=== PATIENT | male | born 1955 | race Asian ===

== ENCOUNTER 2017-04-06 21:51 | Emergency (ER) | payer MEDICAID ==
[~2017-04-06] VITALS: Ht 175.3 cm; Wt 68.0 kg
[~2017-04-06 21:51] MED LIST: GLIP10TA11 PO; METF-510 PO; NITR-85 PO
[2017-04-06 22:00] VITALS: BP_SYST 125
[2017-04-06 23:29] LABS: BASOPHILS % (AUTO) 1.1 % (0.0-2.0); EOSINOPHILS % (AUTO) 4.8 % (0.0-4.0); HEMATOCRIT 31.7 % (36-54); HEMOGLOBIN 10.5 g/dL (14.0-18.0); LYMPHOCYTES # (AUTO) 1.2 K/uL (1.0-5.5); LYMPHOCYTES % (AUTO) 10.9 % (20.5-51.5); MEAN CORPUSCULAR HEMOGLOBIN 30 pg (27-31); MEAN CORPUSCULAR HGB CONC 33 % (32-36); MEAN CORPUSCULAR VOLUME 90 fL (79.0-98.0); MONOCYTES # (AUTO) 0.8 K/uL (0.0-1.0); MONOCYTES % (AUTO) 7.3 % (1.7-9.3); NEUTROPHILS # (AUTO) 8.2 K/uL (1.8-7.7); NEUTROPHILS % (AUTO) 75.9 % (40.0-70.0); PLATELET COUNT (AUTO) 433 K/uL (130-430); RED BLOOD CELL COUNT(AUTO) 3.51 MIL/uL (4.2-6.2); RED CELL DISTRIBUTION WIDTH 13.2 % (9.0-15.0); WHITE BLOOD COUNT (AUTO) 10.8 K/uL (4.8-10.8)
[2017-04-06 23:30] LABS: BASOPHILS # (AUTO) 0.1 K/uL (0.0-0.2); EOSINOPHILS # (AUTO) 0.5 K/uL (0.0-0.4)
[2017-04-06] MEDS ORDERED: NACL 0.9% 1,000 ML IV ONE (23:30)
[2017-04-06 23:35] LABS: CALCIUM 8.7 mg/dL (8.4-11.0); CREATININE 1.63 mg/dL (0.55-1.30); POTASSIUM 3.9 mmol/L (3.5-5.1)
[2017-04-06 23:49] LABS: ALBUMIN 2.5 g/dL (3.4-4.8); TOTAL BILIRUBIN 0.3 mg/dL (0.0-1.0)
[2017-04-07 01:40] VITALS: BP_SYST 120
== END 2017-04-07 01:40 | disposition home or self-care (01) ==
LOC: SED 21:51
DX: R33.9 Retention of urine, unspecified (principal); K21.9 Gastro-esophageal reflux disease without esophagitis; E11.29 Type 2 diabetes mellitus with other diabetic kidney complication; N28.9 Disorder of kidney and ureter, unspecified; E78.00 Pure hypercholesterolemia, unspecified
CPT/HCPCS: 36415; 51702; 80053; 85025; 96360; 99284; J7030

== ENCOUNTER 2017-04-10 12:24 | Emergency (ER) | payer MEDICAID ==
[~2017-04-10] VITALS: Ht 172.7 cm; Wt 65.8 kg
[2017-04-10 12:32] VITALS: BP_SYST 109
[2017-04-10] MEDS ORDERED: NACL 0.9% 1,000 ML IV SCH (12:45)
[2017-04-10 13:04] LABS: BILIRUBIN,URINE NEGATIVE (NEGATIVE); BLOOD, URINE 3+ (NEGATIVE); CLARITY/URINE SL HAZY (CLEAR); COLOR,URINE RED (YELLOW); GLUCOSE,URINE NEGATIVE (NEGATIVE); KETONES,URINE NEGATIVE (NEGATIVE); LEUKOCYTE ESTERASE ,URINE 3+ (NEGATIVE); NITRITE, URINE NEGATIVE (NEGATIVE); PROTEIN URINE 1+ (NEGATIVE); UROBILINOGEN,URINE 0.2 (0.2-1.0)
[2017-04-10 13:22] LABS: BACTERIA,URINE FEW /HPF (None Seen)
[2017-04-10 13:23] LABS: MUCUS,URINE 1+ /LPF (None Seen)
[2017-04-10 13:35] LABS: EOSINOPHILS # (AUTO) 0.5 K/uL (0.0-0.4)
[2017-04-10 13:38] LABS: HEMOGLOBIN 11.9 g/dL (14.0-18.0); MEAN CORPUSCULAR HGB CONC 33 % (32-36); NEUTROPHILS # (AUTO) 6.8 K/uL (1.8-7.7); RED BLOOD CELL COUNT(AUTO) 4.09 MIL/uL (4.2-6.2)
[2017-04-10 13:40] LABS: CREATININE 1.78 mg/dL (0.55-1.30); POTASSIUM 4.1 mmol/L (3.5-5.1)
[2017-04-10 13:41] LABS: BASOPHILS # (AUTO) 0.1 K/uL (0.0-0.2); BASOPHILS % (AUTO) 0.6 % (0.0-2.0); EOSINOPHILS % (AUTO) 5.6 % (0.0-4.0); HEMATOCRIT 36.5 % (36-54); LYMPHOCYTES # (AUTO) 1.4 K/uL (1.0-5.5); LYMPHOCYTES % (AUTO) 14.6 % (20.5-51.5); MEAN CORPUSCULAR HEMOGLOBIN 29 pg (27-31); MEAN CORPUSCULAR VOLUME 89 fL (79.0-98.0); MONOCYTES # (AUTO) 0.5 K/uL (0.0-1.0); MONOCYTES % (AUTO) 5.9 % (1.7-9.3); NEUTROPHILS % (AUTO) 73.3 % (40.0-70.0); RED CELL DISTRIBUTION WIDTH 13.4 % (9.0-15.0); WHITE BLOOD COUNT (AUTO) 9.3 K/uL (4.8-10.8)
[2017-04-10 13:44] LABS: INR 1.1 (0.80-1.20); PROTHROMBIN TIME 11.6 SECS (9.5-12.5)
[2017-04-10 13:45] LABS: TOTAL BILIRUBIN 0.3 mg/dL (0.0-1.0); TOTAL PROTEIN, SERUM 8.1 g/dL (6.4-8.3)
[2017-04-10 14:00] LABS: PLATELET COUNT (AUTO) 603 K/uL (130-430)
[2017-04-10 15:13] VITALS: BP_SYST 144
== END 2017-04-10 15:13 | disposition home or self-care (01) ==
LOC: SED 12:24
DX: E86.0 Dehydration (principal); E78.00 Pure hypercholesterolemia, unspecified; E11.29 Type 2 diabetes mellitus with other diabetic kidney complication; N28.9 Disorder of kidney and ureter, unspecified; K21.9 Gastro-esophageal reflux disease without esophagitis
CPT/HCPCS: 36415; 80053; 81000-TC; 83605; 84484; 85025; 85610-TC; 85730-TC; 87040-TC; 87086; 96360; 99284; J7030

== ENCOUNTER 2017-04-20 21:35 | Emergency (ER) | payer MEDICAID ==
[~2017-04-20] VITALS: Ht 172.7 cm; Wt 62.1 kg
[2017-04-20 21:39] VITALS: BP_SYST 118
--- NOTE | 2017-04-20 22:09 | NUR ---
Placed in room 6 . Placed on campus monitor, blood pressure machine and pulse oximeter. To gown for exam. Side rails up. Report given to Lesa MONTENEGRO.
--- NOTE | 2017-04-20 22:27 | NUR ---
ER at bedside examining patient.
[2017-04-20] MEDS ORDERED: NACL 0.9% 1,000 ML IV ONE (22:33)
--- NOTE | 2017-04-20 22:45 | NUR ---
Pt refused BMP lab draw. Pt has a PICC line left upper arm, no rednesss noted @ site, both ports flushed with 10ml NS, both patent, no resistance noted. informed regarding blood draw refusal.
[2017-04-21] MEDS ORDERED: NACL 0.9% 1,000 ML IV ONE (00:30)
--- NOTE | 2017-04-21 00:37 | NUR ---
Second liter of Normal saline started via left upper arm PICC line. IVF infusing well.
--- NOTE | 2017-04-21 01:55 | NUR ---
called son, explained discharge instructions to son over phone, he gave verbal understanding.
--- NOTE | 2017-04-21 01:55 | NUR ---
Patient given written and verbal discharge instructions and verbalizes understanding. ER MD discussed with patient the results and treatment provided. Patient in stable condition. ID arm band removed. Patient educated on pain management and to follow up with PMD. Pain Scale 0. Opportunity for questions provided and answered.
[2017-04-21 02:03] VITALS: BP_SYST 143
== END 2017-04-21 01:55 | disposition home or self-care (01) ==
LOC: SED 21:35
DX: E86.0 Dehydration (principal); E11.9 Type 2 diabetes mellitus without complications; K21.9 Gastro-esophageal reflux disease without esophagitis; E78.00 Pure hypercholesterolemia, unspecified; Z85.9 Personal history of malignant neoplasm, unspecified
CPT/HCPCS: 96360; 96361; 99284; J7030 ×2

== ENCOUNTER 2017-04-22 16:17 | Emergency (ER) | payer MEDICAID ==
[~2017-04-22] VITALS: Ht 172.7 cm; Wt 62.1 kg
[2017-04-22 16:25] VITALS: BP_SYST 107
[2017-04-22] MEDS ORDERED: NACL 0.9% 2,000 ML IV ONE (16:30)
[2017-04-22 19:27] VITALS: BP_SYST 141
== END 2017-04-22 19:27 | disposition home or self-care (01) ==
LOC: SED 16:17
DX: E86.0 Dehydration (principal); K21.9 Gastro-esophageal reflux disease without esophagitis; E13.29 Other specified diabetes mellitus with other diabetic kidney complication; N28.9 Disorder of kidney and ureter, unspecified; E78.00 Pure hypercholesterolemia, unspecified; Z98.890 Other specified postprocedural states
CPT/HCPCS: 96360; 96361; 99285; J7030

== ENCOUNTER 2017-05-08 14:44 | Emergency (ER) | payer MEDICAID ==
[~2017-05-08] VITALS: Ht 172.7 cm; Wt 59.4 kg
[2017-05-08 14:51] VITALS: BP_SYST 105
--- NOTE | 2017-05-08 15:11 | NUR ---
Patient to ER bed 4 to gown for evaluation. Side rails up. Report given to Evelyn MONTENEGRO.
--- NOTE | 2017-05-08 15:12 | NUR ---
Pt AAOx3, non-ugandan speaking. Family present at bedside to translate. Pt states he has been "feeling dehydrated and nauseous over this weekend." Respirations even and unlabored on RA. Pt c/o 01/27 pain in RLQ at ostomy site, not tender to touch. Ostomy site with drainage bag with brown liquid stool. PICC line present on RUBIA, no swelling or signs of infiltration noted. Addendum: 05/08/17 at 1536 by VIVI No other complaints or injuries per pt or noted.
--- NOTE | 2017-05-08 15:12 | NUR ---
Sander Milan RELIEF SALESPERSON at bedside examining pt.
[2017-05-08] MEDS ORDERED: ONDANSETRON HCL 4 MG/2 ML VIAL IVP ONE (15:30)
[2017-05-08] MEDS ORDERED: NACL 0.9% 1,000 ML IV ONE ×2 (15:30)
--- NOTE | 2017-05-08 16:15 | NUR ---
Pt ambulate to restroom with steady gait accompanied by .
[2017-05-08 17:00] VITALS: BP_SYST 125
== END 2017-05-08 17:00 | disposition home or self-care (01) ==
LOC: SED 14:44
DX: E86.0 Dehydration (principal); E11.9 Type 2 diabetes mellitus without complications; K21.9 Gastro-esophageal reflux disease without esophagitis; E78.00 Pure hypercholesterolemia, unspecified; Z93.3 Colostomy status; Z79.899 Other long term (current) drug therapy; Z98.890 Other specified postprocedural states; Z87.891 Personal history of nicotine dependence
CPT/HCPCS: 96361; 96374; 99284; J2405; J7030

== ENCOUNTER 2017-05-30 12:52 | Emergency (ER) | payer MEDICAID ==
[~2017-05-30] VITALS: Ht 172.7 cm; Wt 59.0 kg
[2017-05-30 13:11] VITALS: BP_SYST 110
[2017-05-30] MEDS ORDERED: NS 250 ML IV ONE (14:15)
[2017-05-30 14:58] VITALS: BP_SYST 110
== END 2017-05-30 14:58 | disposition home or self-care (01) ==
LOC: SED 12:52
DX: T82.534A Leakage of infusion catheter, initial encounter (principal); E11.29 Type 2 diabetes mellitus with other diabetic kidney complication; N28.9 Disorder of kidney and ureter, unspecified; K21.9 Gastro-esophageal reflux disease without esophagitis; E78.00 Pure hypercholesterolemia, unspecified
CPT/HCPCS: 99284; J7050

== ENCOUNTER 2018-06-13 21:54 | Inpatient (IN) | payer MEDICAID ==
[~2018-06-13] VITALS: Ht 172.7 cm; Wt 53.1 kg
[~2018-06-13 21:54] MED LIST changes: +FENO160T8 PO; -GLIP10TA11 PO; +HYDR-4100 PO; +INSU100I26 SQ; -METF-510 PO; -NITR-85 PO; +ONDA4TAB5 PO; +SITA100T7 PO; +SULF1TAB48 PO; +TAMS-11 PO
--- NOTE | 2018-06-13 21:58 | NUR ---
Placed in room 06. Placed on teletypesetter monitor, blood pressure machine and pulse oximeter. To gown for exam. Side rails up. Report given LAN John.
[2018-06-13 22:00] VITALS: BP_SYST 104
--- NOTE | 2018-06-13 22:00 | NUR ---
Report given to LAN Paulino.
--- NOTE | 2018-06-13 22:02 | NUR ---
Per the patient's son, patient is currently alert and oriented as per his usual baseline. Patient was brought in via [facility] ambulance for a main complaint of "not being able to recognize family members at home". Patient presents with a Escalante catheter and two drainage devices for wounds to the patient's sacrum and lower back. Patient denies fall, chest pain, shortness of breath, and any other complaints at this time.
--- NOTE | 2018-06-13 22:06 | NUR ---
ER Dr. Richards at bedside examining patient.
[2018-06-13] MEDS ORDERED: NACL 0.9% 1,000 ML IV ONE (22:09)
[2018-06-13] MEDS ORDERED: CLINDAMYCIN 900 mg/50mL D5W 50 ML IV ONE (22:15)
[2018-06-13] MEDS ORDERED: NS 1000 ML IV.SOLN IV ONE (22:15)
[2018-06-13 22:38] LABS: BASOPHILS # (AUTO) 0.1 K/uL (0.0-0.2); BASOPHILS % (AUTO) 0.5 % (0.0-2.0); EOSINOPHILS % (AUTO) 0.2 % (0.0-4.0); HEMOGLOBIN 11.2 g/dL (14.0-18.0); LYMPHOCYTES # (AUTO) 0.6 K/uL (1.0-5.5); LYMPHOCYTES % (AUTO) 4.5 % (20.5-51.5); MEAN CORPUSCULAR HEMOGLOBIN 30 pg (27-31); MEAN CORPUSCULAR HGB CONC 34 % (32-36); MEAN CORPUSCULAR VOLUME 87 fL (79.0-98.0); MONOCYTES # (AUTO) 0.9 K/uL (0.0-1.0); NEUTROPHILS # (AUTO) 11.2 K/uL (1.8-7.7); NEUTROPHILS % (AUTO) 87.8 % (40.0-70.0); PLATELET COUNT (AUTO) 531 K/uL (130-430); RED BLOOD CELL COUNT(AUTO) 3.79 MIL/uL (4.2-6.2); RED CELL DISTRIBUTION WIDTH 18.5 % (9.0-15.0); WHITE BLOOD COUNT (AUTO) 12.8 K/uL (4.8-10.8)
[2018-06-13 22:52] LABS: ANION GAP 13 (5-15); CHLORIDE 96 mmol/L (98-107); CREATININE 1.08 mg/dL (0.55-1.30); GLUCOSE 137 mg/dL (70-99); POTASSIUM 3.7 mmol/L (3.5-5.1); SODIUM SERUM 136 mmol/L (136-145); UREA NITROGEN, BLOOD 23 mg/dL (8-21)
[2018-06-13 22:54] LABS: GFR AFRICAN AMERICAN 89 mL/min (>90)
[2018-06-13 23:00] LABS: INR 1.1 (0.80-1.20); PROTHROMBIN TIME 11.6 SECS (9.5-12.5)
[2018-06-13 23:21] LABS: ALANINE AMINOTRANSFERASE 27 U/L (12-78); ALBUMIN 2.6 g/dL (3.4-4.8); AMYLASE 29 U/L (0-100); ASPARTATE AMINOTRANSFERASE 68 U/L (10-37); LIPASE 128 U/L (73-393); TOTAL BILIRUBIN 1.3 mg/dL (0.0-1.0)
[2018-06-13 23:29] LABS: ALCOHOL, BLOOD < 3 mg/dL (<10)
--- NOTE | 2018-06-13 23:50 | NUR ---
# 16 FR Whelan catheter with use of sterile technique. Immediate return of 10 cc red urine noted. Bedside drainage bag placed below level of bladder. Urine sample collected and sent to lab. Pt tolerated procedure well. Patient arrived with whelan in place, changed due to standard of practice prior to admission.
--- NOTE | 2018-06-13 23:58 | NUR ---
Patient is calmly resting in ER bed, no signs of distress noted. Vital signs are within therapeutic range.
[2018-06-14 00:10] LABS: BARBITURATE, URINE NEGATIVE (NEG <=200); BENZODIAZEPINE, URINE NEGATIVE (NEG <=150); CANNABINOID, URINE NEGATIVE (NEG <=50); COCAINE, URINE NEGATIVE (NEG <=150); METHAMPHETAMINES SCREEN,URINE NEGATIVE (NEG <=500); OPIATE, URINE POSITIVE (NEG <=100); PHENCYCLIDINE SCREEN,URINE NEGATIVE (NEG <=25); URINE AMPHETAMINE NEGATIVE (NEG <=500); URINE METHADONE NEGATIVE (NEG <=200)
[2018-06-14 00:11] LABS: UR TRICYCLIC ANTIDEPRESSANTS NEGATIVE (NEG <=300); URINE OXYCODONE SCREEN NEGATIVE (NEG <=100); URINE PROPOXYPHENE SCREEN NEGATIVE (NEG <=300)
[2018-06-14 00:33] LABS: COLOR,URINE RED (YELLOW)
[2018-06-14 00:34] LABS: BILIRUBIN,URINE 1+ (NEGATIVE); BLOOD, URINE 3+ (NEGATIVE); CLARITY/URINE CLOUDY (CLEAR); GLUCOSE,URINE NEGATIVE (NEGATIVE); KETONES,URINE NEGATIVE (NEGATIVE); LEUKOCYTE ESTERASE ,URINE 3+ (NEGATIVE); NITRITE, URINE POSITIVE (NEGATIVE); PROTEIN URINE 2+ (NEGATIVE); UROBILINOGEN,URINE 0.2 (0.2-1.0)
[2018-06-14 00:53] LABS: BACTERIA,URINE MANY /HPF (None Seen); RBC,URINE >100 /HPF (0-3); WBC,URINE >100 /HPF (0-3)
[2018-06-14] MEDS ORDERED: NACL 0.9% 1,000 ML IV ONE (01:00)
[2018-06-14] MEDS ORDERED: cefTRIAXone 1 GM IVPB PREMIX 50 ML IV ONE (01:00)
[2018-06-14] MEDS ORDERED: MORP30TA59 PO (01:05)
[2018-06-14] MEDS ORDERED: LANS15CA5 PO (01:05)
[2018-06-14] MEDS ORDERED: OXYB5TAB11 PO (01:05)
[2018-06-14] MEDS ORDERED: METR500T PO (01:05)
[2018-06-14] MEDS ORDERED: MORP15TA60 PO (01:05)
--- NOTE | 2018-06-14 01:58 | NUR ---
Patient is calmly resting in ER bed, no signs of distress noted at this time. Vital signs are within therapeutic range.
[2018-06-14] MEDS ORDERED: NACL 0.9% 1,000 ML IV SCH (02:05)
--- NOTE | 2018-06-14 02:10 | NUR ---
ADMISSION NOTE Received patient from ER via connie, received report from LAN NARAYAN. Patient admitted with diagnosis of UTI. Patient oriented to hospital routine, call light, toileting and safety-patient verbalized understanding.
[2018-06-14] MEDS ORDERED: ACETAMINOPHEN 325 MG TABLET PO PRN (02:15)
[2018-06-14] MEDS ORDERED: MORPHINE 2 MG/ML INJ. SYRINGE IVP PRN (02:15)
[2018-06-14] MEDS ORDERED: ALBUTEROL SULFATE 0.083% 2.5 MG/3 ML VIAL.NEB INH PRN (02:15)
[2018-06-14] MEDS ORDERED: MORPHINE 4 MG/ML INJ. SYRINGE IVP PRN (02:15)
[2018-06-14] MEDS ORDERED: ONDANSETRON HCL 4 MG/2 ML VIAL IVP PRN (02:15)
[2018-06-14] MEDS: cefTRIAXone 1 GM IVPB PREMIX 50 ML IV SCH (02:15)
[2018-06-14 02:19] VITALS: BP_SYST 121
--- NOTE | 2018-06-14 02:22 | NUR ---
End of life care decisions discussed with patient by Dr. Richards. Opportunity for questions and concerns addressed. Patient's code status is modified code with medications only. ER MD said he will not sign the code status sheet and told family to speak with the patient's primary care provider for POLST sheet to confirm the patient's code status.
--- NOTE | 2018-06-14 02:23 | NUR ---
Patient will be admitted to care of Dr. Hay. Admitted to med surg unit. Will go to room 113B. Belongings list completed. Summary report printed. Report given to Julia MONTENEGRO at bedside.
--- NOTE | 2018-06-14 02:23 | NUR ---
Note kenzie in EDM - 06/14/18 at 0652 by MELONYJ Patient will be admitted to care of Dr. Hay. Admitted to med surg unit. Will go to room 116B. Belongings list completed. Summary report printed. Report given to Julia MONTENEGRO at bedside.
--- NOTE | 2018-06-14 04:48 | NUR ---
PAGED I PAGED DR. WILSON @ 1930 I SPOKE WITH ADEN CORONA
--- NOTE | 2018-06-14 04:55 | NUR ---
DR. KATIE WILSON CALLED BACK @ [phone]
--- NOTE | 2018-06-14 05:18 | NUR ---
PALLIATIVE CONSULT Consult for Blessing López was called. [phone] RE end stage ca SW DR. Bernard Consult ordered by Dr. Hay
[2018-06-14 05:24] VITALS: BP_SYST 121
[2018-06-14] MEDS: LORazepam 2 MG/ML VIAL IVP PRN ×2 (05:25→23:05)
--- NOTE | 2018-06-14 06:10 | NUR ---
i have applied restraints;non-behvioral;wrist;bilateral.alternative measures attempted to no avail:un-successful. i telephoned the pt's son.i apprised the son of the pt,status;progressive restlessness/agitation.pt.presents drains; x4;nephrostomy:rt/lt.ostomy;mid-abdomen,whelan catheter.pt.was attempting to pull/remove the drains.ativan:1mg was administer to no avail;un-successful.pt.repositioned,water provided.drains hidden from sight.call light/telephone placed w/in the pt's reach.
--- NOTE | 2018-06-14 06:26 | NUR ---
RENE CALLED ALEC SPEECH @06 LEFT A MESSAGE ON ANSWERING MACHINE PHONE NUMBER I CALLED [phone]
--- NOTE | 2018-06-14 06:45 | NUR ---
pt.was received,from home vis the er-dept.pt.presents symptomology:aloc.pt.presents language barrier extant; mandarin;sole language;:mandarin sole language,son:fluent;croatian.pt.was received in docile affect;calm. pt's son stated the pt.speech is incoherent/garbled.pt.presents general weakness.pt.presents drains x4:location rt/lt flank;nephrostomy,mid;lower abdomen;ostomy,whelan catheter.pt.presents skin integrity compromised; denuded sites x3 locations;sacrum,lt.hip,lt.heel.i have photographed the skin involved areas.i have photographed the rt.hip;pink;blanchable;no open skin.rt.heel pink blanchable;no open skin.pt.had presents progressive restless/agitation affect;behaior i telephone .i apprised of the pt's status. ordered ativan:1mg ivp q-8hrs/prn;restless/agitation or restraints if ativan not effective.i administered the ativan:1mg ivp tyo no avail.pt.did not calm.restrainst wrist;bilateral placed: pt.had presented attempt to reach the drains;nephrostomy,ostomy,whelan drains.i telephoned the pt's son apprised him of the pt's status;change in affect;restless/agitation application of restrainst wrist;bilateral.pt's son acquiesced.i have applied opti-foam dsg to wounds;sacrum.lt/rt.hip.rt/lt heel.i have re-established iv access line;#24g:rt.hand.orders placed for wound/dietary consult;pt.is adiabetic;i apprised /leland;u of the pt's diabetic hx ordered blood glucose assessed;ac/hs:initial blood glucose:@0200a:106mg/dl blood glucose@0600a;149mg/dl.call light/telephone placed w/i the pt's reach.
[2018-06-14 07:34] LABS: RED CELL DISTRIBUTION WIDTH 18.8 % (9.0-15.0)
[2018-06-14 07:49] LABS: EOSINOPHILS % (AUTO) 0.2 % (0.0-4.0); HEMATOCRIT 29.8 % (36-54); HEMOGLOBIN 10.2 g/dL (14.0-18.0); LYMPHOCYTES # (AUTO) 0.6 K/uL (1.0-5.5); LYMPHOCYTES % (AUTO) 3.9 % (20.5-51.5); MEAN CORPUSCULAR HEMOGLOBIN 30 pg (27-31); MEAN CORPUSCULAR HGB CONC 34 % (32-36); MEAN CORPUSCULAR VOLUME 89 fL (79.0-98.0); MONOCYTES # (AUTO) 1.1 K/uL (0.0-1.0); NEUTROPHILS % (AUTO) 88.9 % (40.0-70.0); PLATELET COUNT (AUTO) 488 K/uL (130-430); RED BLOOD CELL COUNT(AUTO) 3.36 MIL/uL (4.2-6.2); WHITE BLOOD COUNT (AUTO) 15.7 K/uL (4.8-10.8)
[2018-06-14 08:00] VITALS: BP_SYST 133
--- NOTE | 2018-06-14 08:00 | NUR ---
RN OPENING NOTE PATIENT RESTING ON BED, HANDS ARE VERY MOVABLE. TRYING OT PULL ON ANYTHING, RETRAINTS ON PLACE. CIRCULATION IS GOOD. PATIENT RESTRAINS WERE RELEASED FOR 10 MIN. PATIENT WAS ASSESSED, VITAL SIGNS ARE STABLE. WILL CONTINUE TO MONITOR.
[2018-06-14 08:22] LABS: ALBUMIN 2.2 g/dL (3.4-4.8); CALCIUM 8.4 mg/dL (8.4-11.0); CREATININE 1.2 mg/dL (0.55-1.30); POTASSIUM 3.9 mmol/L (3.5-5.1); TOTAL BILIRUBIN 1.2 mg/dL (0.0-1.0)
--- NOTE | 2018-06-14 09:14 | NUR ---
Nutrition Update Law Scale 11 noted. Pt admitted for UTI and metastatic CA. Diet: regular BMI: 10 kg/m2 RD to follow per nutrition care standards.
--- NOTE | 2018-06-14 10:00 | NUR ---
RN NOTES PATIENT RESTING ON BED, STILL MOVING HANDS TRYING TO ASSISTANT PORTFOLIO MANAGER ON THE TUBES, BY THE BED SIDE, RETRAINS WERE EVALUATED, RELEASED FOR 10 MIN, REAPPLIED AGAIN WILL CONTINUE TO MONITOR.
--- NOTE | 2018-06-14 12:00 | NUR ---
RN NOTES PATIENT RESTING ON BED, STILL MOVING HANDS TRYING TO BACK HAND ON THE TUBES, BY THE BED SIDE, RETRAINS WERE EVALUATED, RELEASED FOR 10 MIN, REAPPLIED AGAIN WILL CONTINUE TO MONITOR
[2018-06-14 12:35] VITALS: BP_SYST 138
--- NOTE | 2018-06-14 13:18 | NUR ---
CONSULTATION PAGED/CALLED Reason for Consultation: [] APPSERENA IBARRA Person Who was Notified: [] DR JIM Consulting Physician: [] DR JIM Failure Analysis Engineer Specialty: [] ONCO/HEMATOLOGY Ordering Physician: [] DR uJan PICHARDO
[2018-06-14] MEDS: D5NS 1,000 ML IV SCH ×2 (13:26→23:11)
--- NOTE | 2018-06-14 14:00 | NUR ---
RN NOTES PATIENT RESTING ON BED, STILL MOVING HANDS TRYING TO CASINO FLOOR PERSON ON THE TUBES, BY THE BED SIDE, RETRAINS WERE EVALUATED, RELEASED FOR 10 MIN, REAPPLIED AGAIN WILL CONTINUE TO MONITOR
--- NOTE | 2018-06-14 16:00 | NUR ---
RN NOTES PATIENT RESTING ON BED, STILL MOVING HANDS TRYING TO LIQUID HYDROGEN PLANT OPERATOR ON THE TUBES, BY THE BED SIDE, RETRAINS WERE EVALUATED, RELEASED FOR 10 MIN, REAPPLIED AGAIN WILL CONTINUE TO MONITOR
--- NOTE | 2018-06-14 16:22 | NUR ---
S.T. SWALLOW EVAL COMPLETED. PT'S SON AND PRESENT. PT PRESENTS W/ SEV OROPHARYNGEAL DYSPHAGIA W/ ERRATIC BOLUS PHLEBOTOMY MANAGER, VERY DISORDERLY BOLUS MANIPULATION AND TRANSFER, ORAL RESIDUE, AND ERRATIC OR ABSENT SWALLOW INITIATION. PT IS AT HIGH RISK FOR ASPIRATION, MALNUTRITION, AND DEHYDRATION. REC: NPO - ALTERNATIVE METHOD FOR FEEDING. NURSE OVNNIE NOTIFIED. FAMILY IN AGREEMENT. G8996 CM G5997 CM G8998 CM NOMS LEVEL 2
[2018-06-14 16:30] VITALS: BP_SYST 129
[2018-06-14] MEDS: INSULIN REGULAR, HUMAN 100 UNITS/ML, 10 ML VIAL (novoLIN R) SUBCUT PRN (17:17)
--- NOTE | 2018-06-14 18:00 | NUR ---
RN CLOSING NOTE PATIENT RESTING ON BED, SON CAME BY THE BEDSIDE, PATIENT IS MORE CALMER. PATIENT WAS REPOSITONED ON BED. BLOOD SUGAR IS 192MG/DL. PATIENT GOT 2 UNITS OF REG INSULIN, RESTRAINED WERE ASSESSED, WILL CONTINUE TO MONITOR AND WILL ENDORSE TO NEXT SHIFT.
[2018-06-14 19:15] VITALS: BP_SYST 121
--- NOTE | 2018-06-14 19:15 | NUR ---
OPENING NOTE Received bedside sbar report from LAN Elise Patient is awake, unable to assess orientation. No acute distress noted: 121/76 111 17 99% (2LNC) 97.6 no signs of pain/discomfort IV noted to left hand 20g infusing D5NS @ 100ml/hr. IV to right hand 24g, saline locked and dislodged. DC'd IV site and verified catheter tip fully intact. SCD's applied/functioning. Nephrostomy bag to right draining yellow urine, nephrostomy bag to the left draining bloody urine, urostomy draining pink tinged/yellow urine. Introduced myself, updated whiteboard, discussed plan of care. Bed to lowest position, 3 side rails up, call light within reach, bed alarm activated. Will continue to monitor patient.
--- NOTE | 2018-06-14 20:17 | NUR ---
BLOOD GLUCOSE : 104 (No correction needed per physician ordered correction scale)
--- NOTE | 2018-06-14 21:20 | NUR ---
ROUNDS Patient is resting, eye closed with no acute distress noted. Respirations are equal/non-labored; 17/min. 2LNC applied/flowing. IV site is clean/dry/intact. Family members do no need anything at this time. Bed to lowest position, 3 side rails up, call light within reach, bed alarm activated. Will continue to monitor patient.
--- NOTE | 2018-06-14 23:05 | NUR ---
ATIVAN Patient is anxious/agitated. Administered Ativan 1mg as ordered by physician for agitation.
--- NOTE | 2018-06-14 23:30 | NUR ---
WOUND CARE Generalized woundcare provided. Cleansed with normal saline, pat dry, dressed with optifoam. Sacrum, left hip, left heel. Prophylactic optifoam placed on right hip and right heel. Wound care consult entered.
--- NOTE | 2018-06-14 23:35 | NUR ---
ROUNDS Patient is resting, eyes closed with no shortness of breath or labored breathing noted. Symmetric rise and fall of respirations; 17/min. IV site is clean/dry/intact, infusing D5NS @ 100ml/hr. Bed to lowest position, 3 side rails up, call light within reach, bed alarm activated. Will continue to monitor patient.
[2018-06-15 00:15] VITALS: BP_SYST 119
--- NOTE | 2018-06-15 01:20 | NUR ---
IV SITE DISLODGED New IV site to right hand 22g. Verified patency with good blood return/flush. Verified dislodged IV catheter tip is fully intact.
[2018-06-15] MEDS: cefTRIAXone 1 GM IVPB PREMIX 50 ML IV SCH (02:10)
--- NOTE | 2018-06-15 03:35 | NUR ---
ROUNDS Patient is resting, eyes closed with no distress noted. Symmetric rise and fall of chest with non-labored respirations @ 16/min. IV site is clean/dry/intact, infusing D5NS @ 100ml/hr. SCD's applied/functioning. Bed to lowest position, 3 side rails up, call light within reach, bed alarm activated. Will continue to monitor patient.
--- NOTE | 2018-06-15 05:49 | NUR ---
ROUNDS Patient is laying in bed, eyes open in no acute distress. Equal rise and fall of chest with non-labored respirations @ 17/min. IV site is clean/dry/intact, infusing D5NS @ 100ml/hr with no signs of infiltration. SCD's applied/functioning. Bed to lowest position, 3 side rails up, call light within reach, bed alarm activated. Will continue to monitor patient.
--- NOTE | 2018-06-15 06:00 | NUR ---
BLOOD GLUCOSE : 224 (4U regular insulin administered per physician ordered correction sliding scale.)
[2018-06-15] MEDS: INSULIN REGULAR, HUMAN 100 UNITS/ML, 10 ML VIAL (novoLIN R) SUBCUT PRN ×4 (06:02→21:40)
[2018-06-15] MEDS: LORazepam 2 MG/ML VIAL IVP PRN ×2 (06:40→21:37)
--- NOTE | 2018-06-15 07:25 | NUR ---
CLOSING NOTES Bedside sbar report given to Mitzi RN. Patient is resting, eyes closed and in no apparent distress. All needs/interventions/expectations met by nightshift RN. Transfer of care successful.
--- NOTE | 2018-06-15 07:50 | NUR ---
MD ROUNDS DR PICHARDO ROUNDING AND AWARE OF PATIENTS CONDITION, AWARE THAT DR ETIENNE FROM PALLIATIVE CARE IS UNABLE TO SEE PT DUE TO INSURANCE AND AWARE THAT RENEWAL OF RESTRAINTS NEEDS TO BE ORDERED, PER MD VERBAL ORDER GIVEN TO APPLY MITTENS INSTEAD OF WRIST RESTRAINTS. CHARGE NURSE AWARE.
--- NOTE | 2018-06-15 07:55 | NUR ---
INITIAL NOTE RECEIVED PT IN BED, NO S/S OF DISTRESS OR SOB NOTED, PT HAS NO FACIAL GRIMACING NOTED FOR PAIN AT THIS TIME, PT IN STABLE CONDITION, PT AAOX1, CONFUSED, NON VERBAL. IV CATHETER PATENT, NO SIGNS OF INFECTION OR INFILTRATION NOTED. PT HAS BILATERAL SCD'S IN PLACE. PT HAS OXYGEN VIA NASAL CANNULA, SATURATION OF 97%. BED AT LOWEST POSITION, CALL LIGHT WITHIN REACH, WILL CONTINUE TO MONITOR PT FOR ANY CHANGES, FALL AND SAFETY PRECAUTIONS IN PLACE. PT IS CONFUSED AND RESTLESS, ATTEMPTING TO PULL OUT TUBES, ON BILATERAL WRIST RESTRAINTS THAT WERE CHANGED TO MITTENS PER MD ORDER. NO FAMILY AT BEDSIDE. PT HAS A F/C DRAINING PINK IN COLOR URINE, TWO NEPHROSTOMY TUBES AND A UROSTOMY TUBE, RIGHT NEPHROSTOMY TUBE DRAINING YELLOW IN COLOR AND BOTH UROSTOMY AND LEFT NEPHROSTOMY TUBE DRAINING RED IN COLOR.
[2018-06-15 08:29] LABS: BASOPHILS % (AUTO) 0.1 % (0.0-2.0); EOSINOPHILS % (AUTO) 0.1 % (0.0-4.0); HEMATOCRIT 29.4 % (36-54); LYMPHOCYTES # (AUTO) 0.3 K/uL (1.0-5.5); LYMPHOCYTES % (AUTO) 2.4 % (20.5-51.5); MEAN CORPUSCULAR HEMOGLOBIN 30 pg (27-31); MEAN CORPUSCULAR HGB CONC 34 % (32-36); MEAN CORPUSCULAR VOLUME 89 fL (79.0-98.0); MONOCYTES # (AUTO) 0.5 K/uL (0.0-1.0); MONOCYTES % (AUTO) 3.5 % (1.7-9.3); NEUTROPHILS # (AUTO) 13.5 K/uL (1.8-7.7); NEUTROPHILS % (AUTO) 93.9 % (40.0-70.0); PLATELET COUNT (AUTO) 490 K/uL (130-430); RED BLOOD CELL COUNT(AUTO) 3.31 MIL/uL (4.2-6.2); RED CELL DISTRIBUTION WIDTH 18.8 % (9.0-15.0); WHITE BLOOD COUNT (AUTO) 14.3 K/uL (4.8-10.8)
[2018-06-15 08:40] LABS: ALBUMIN 2.1 g/dL (3.4-4.8); CALCIUM 8.5 mg/dL (8.4-11.0); CREATININE 1.32 mg/dL (0.55-1.30); POTASSIUM 3.7 mmol/L (3.5-5.1); TOTAL BILIRUBIN 2.2 mg/dL (0.0-1.0)
[2018-06-15] MEDS: D5NS 1,000 ML IV SCH ×2 (08:43→18:34)
[2018-06-15 08:46] VITALS: BP_SYST 104
--- NOTE | 2018-06-15 10:20 | NUR ---
ROUNDS PT IN BED, NO S/S OF DISTRESS OR SOB NOTED, PT HAS NO FACIAL GRIMACING NOTED FOR PAIN, PT IN STABLE CONDITION, PT RESTLESS AND MOVING AROUND, ATTEMPTING TO REMOVE IV LINE, WILL CONTINUE TO MONITOR PT FOR ANY CHANGES. PT HAS MITTENS ON FOR SAFETY. SAFETY PRECAUTIONS IN PLACE.
[2018-06-15 12:18] VITALS: BP_SYST 99
--- NOTE | 2018-06-15 12:18 | NUR ---
ROUNDS PT IN BED, NO S/S OF DISTRESS OR SOB NOTED, PT HAS NO FACIAL GRIMACING NOTED FOR PAIN, PT IN STABLE CONDITION, PT RESTLESS, ATTEMPTING TO REMOVE IV LINE, WILL CONTINUE TO MONITOR PT FOR ANY CHANGES. PT HAS MITTENS ON FOR SAFETY. SAFETY PRECAUTIONS IN PLACE.
--- NOTE | 2018-06-15 15:19 | NUR ---
Dietitian Recommendations * Consider nutrition support as sole source of nutrition LP, RD Please refer to Nutrition Assessment for details.
--- NOTE | 2018-06-15 15:29 | NUR ---
CONSULTATION CALLED REASON FOR CONSULTATION:WOUND ON BUTTOCKS AND LEFT HIP WAS CONSULT CALLED?Y PERSON WHO WAS NOTIFIED:KERRY CONSULTING PHYSICIAN:LIZY MIR CONTRACT WRITER SPECIALTY:SURGEON CONTRACT WRITER PHONE NUMBER:[phone] ORDERING PHYSICIAN:MALAIKA RAMIREZ
--- NOTE | 2018-06-15 15:35 | NUR ---
WOUND EVALUATION: Wound Consult received from Dr. Hay. Thank you, Dr. Hay, for the consult. Patient received in a Cas[place] Bed with a mattress, awake, alert, and oriented. Patient is unable to turn independently. Law Score is a 13. Past Medical History: Metastatic Appendiceal Cancer, Diabetes Mellitus, Appendix surgery, Hypertension. Recent Labs: WBC 14.3, RBC 3.31, hemoglobin 10.0, hematocrit 29.4, platelets 490, potassium 3.7, chloride 110, BUN 20, creatinine 1.32, GFR 59, glucose 237, alkaline phosphatase 926, albumin 2.1. Intrinsic factors that delay wound healing: Metastatic Appendiceal Cancer, Diabetes Mellitus, Hypoalbuminemia. Extrinsic factors that delay wound healing: Immobility. Microbiology: Blood culture results 2 in progress. MRSA screen results negative. Urine culture results in progress. Dr. Kwan was in the room assessing patient, and was informed of the wounds, and of the request for a surgical consult. Wound Assessment: 1. Sacral area: Unstageable pressure ulcer, present on admission. Wound bed has 85% black eschar, 10% yellow tissue, 5% pink tissue. Periwound is erythematous. Surrounding tissue has dark discoloration. Measures 2.7 cm x 2.5 cm. Recommend: Cleanse wound with normal saline. Place moisture barrier cream onto emerson-wound. Apply Venelex ointment onto wound bed. Cover with Sacral foam dressing. Perform wound care daily, and as needed for dressing soiling or dislodgement. 2. Left Hip: Scar tissue, present on admission. Site has 95% light pink tissue, 5% pink tissue. No odor, scant yellow purulent drainage. Periwound intact. Site measures 3.5 cm x 3.7 cm. Recommend: Cleanse wound with normal saline. Place moisture barrier cream onto emerson-wound. Apply Venelex ointment onto wound bed. Cover with foam dressing. Perform wound care daily, and as needed for dressing soiling or dislodgement. 3. Left Posterior Medial Heel: Unstageable pressure ulcer, present on admission. Wound bed has 95% yellow slough, 5% brown slough. No odor, scant yellow purulent drainage. Periwound intact. Wound measures 0.7 cm x 0.5 cm. Recommend: Cleanse wound with normal saline. Place moisture barrier cream onto emerson-wound. Apply Venelex ointment onto wound bed. Cover with Sacral foam dressing. Perform wound care daily, and as needed for dressing soiling or dislodgement. 4. Right heel: Blanchable erythema, present on admission. Recommend: Elevate, offload and float bilateral heels with one pillow lengthwise under each extremity at all times. Recommend surgical consult. Also recommend: Reposition patient every 2 hours with pillow support and off-load pressure areas with pillows for pressure re-distribution. Elevate, offload and float bilateral heels with one pillow lengthwise under each extremity at all times. Perform skin care and monitor skin integrity Q shift. Use moisture barrier cream on buttocks and other moisture susceptible areas QID and as needed for soiling. Place patient on a low air-loss mattress.
[2018-06-15 16:54] VITALS: BP_SYST 107
--- NOTE | 2018-06-15 18:41 | NUR ---
CLOSING NOTE PT IN BED, NO S/S OF DISTRESS OR SOB NOTED, PT HAS NO FACIAL GRIMACING NOTED FOR PAIN AT THIS TIME, PT IN STABLE CONDITION, PT AAOX1, CONFUSED, NON VERBAL. IV CATHETER PATENT, NO SIGNS OF INFECTION OR INFILTRATION NOTED. PT HAS BILATERAL SCD'S IN PLACE. PT HAS OXYGEN VIA NASAL CANNULA 2 LITERS, SATURATION OF 97%. BED AT LOWEST POSITION, CALL LIGHT WITHIN REACH, WILL ENDORSE CARE OF PT TO INCOMING NURSE, FALL AND SAFETY PRECAUTIONS IN PLACE. PT IS CONFUSED AND RESTLESS, ATTEMPTING TO PULL OUT TUBES, PT HAS MITTENS ON BILATERALLY. PT HAS A F/C DRAINING PINK IN COLOR URINE, TWO NEPHROSTOMY TUBES AND A UROSTOMY TUBE, RIGHT NEPHROSTOMY TUBE DRAINING YELLOW IN COLOR AND BOTH UROSTOMY AND LEFT NEPHROSTOMY TUBE DRAINING RED IN COLOR. OUTPUT PUT IN COMPUTER. PT WILL BE NPO AFTER MIDNIGHT FOR SURGERY IN AM.
[2018-06-15 19:10] VITALS: BP_SYST 111
--- NOTE | 2018-06-15 19:10 | NUR ---
OPENING NOTE Received bedside sbar report from LAN Cartagena Patient is awake/alert/oriented x 0, non-verbal and confused. His is sitting bedside. No acute distress noted: 111/63 106 14 99% (2LNC) 98.9 no signs of pain/discomfort IV noted to right hand 22g infusing D5NS @ 100ml/hr. Patency verified with good blood return/flush. SCD's applied/functioning. Nephrostomy bag to right draining yellow urine, nephrostomy bag to the left draining bloody urine, urostomy draining pink tinged/yellow urine. Escalante catheter noted with approx 50ml pink tinged urine. Introduced myself, updated whiteboard, discussed plan of care. Bed to lowest position, 3 side rails up, call light within reach, bed alarm activated. Will continue to monitor patient.
--- NOTE | 2018-06-15 19:35 | NUR ---
Paged Dr. Gambino dialed [phone], s/w Merle
--- NOTE | 2018-06-15 19:50 | NUR ---
Received call from Dr. Gambino as he is returning my page. Per daysraghav RN, procedure has not been explained to family. We need procedure explained and consent signed. Informed him that son (Sidney) speaks malagasy and can be contacted at [phone]. Dr. Gambino will call to explain procedure.
--- NOTE | 2018-06-15 21:00 | NUR ---
Left message for son to call regarding scheduled wound debridement for tomorrow.
--- NOTE | 2018-06-15 21:29 | NUR ---
Spoke to patient's bedside using historical interpreter #[id number] via [place] Mandarin. Inquired if Dr. Gambino had contacted her son to explain procedure as I contacted son and left message to return my call. Patient's said that Dr. Gambino did speak to her son and explain procedure and at this time they don't want to proceed with debridement until patient is more stable. I informed the patient's I needed to speak to son just to confirm that they are refusing procedure. She was attempting to give the patient water, I informed her that patient failed his swallow eval and is an aspiration precaution until further notice. She understands and has no further questions.
--- NOTE | 2018-06-15 21:35 | NUR ---
Left message for son to call regarding scheduled wound debridement for tomorrow.
--- NOTE | 2018-06-15 21:36 | NUR ---
BLOOD GLUCOSE : 203 (4U regular insulin administered per physician ordered correction sliding scale.)
--- NOTE | 2018-06-15 21:37 | NUR ---
ATIVAN Patient is anxious/agitated. Administered Ativan 1mg as ordered by physician for agitation.
--- NOTE | 2018-06-15 21:40 | NUR ---
ROUNDS Patient is resting, with his eyes closed and no acute distress noted. Respirations are equal/non-labored; 15/min. 2LNC applied/flowing and saturating 100%. IV site is clean/dry/intact. His is bedside reading. Bed to lowest position, 3 side rails up, call light within reach, bed alarm activated. Will continue to monitor patient.
--- NOTE | 2018-06-15 21:54 | NUR ---
Patient's son has arrived. Confirmed with him that he and his family do not want procedure done. He says, "there is no reason to do procedure and cause his father to be in pain. We want to wait until one day when he is stronger and more stable." Explained to him that debriding the wound will remove all skin/contents to allow new tissue to form and wounds to heal. He understands but would still prefer to wait. He has no further questions/concerns at this time. Charge nurse aware.
[2018-06-15 23:58] VITALS: BP_SYST 136
--- NOTE | 2018-06-16 00:05 | NUR ---
ROUNDS Patient is resting, eyes open. No shortness of breath or labored breathing noted. Symmetric rise and fall of respirations; 15/min. IV site is clean/dry/intact, infusing D5NS @ 100ml/hr with no signs of infiltration or redness. Bed to lowest position, 3 side rails up, call light within reach, bed alarm activated. Will continue to monitor patient.
[2018-06-16] MEDS: cefTRIAXone 1 GM IVPB PREMIX 50 ML IV SCH (01:36)
--- NOTE | 2018-06-16 02:35 | NUR ---
ROUNDS Patient is laying in bed, eyes open in no acute distress. Equal rise and fall of chest with non-labored respirations @ 14/min. IV site is clean/dry/intact, infusing D5NS @ 100ml/hr. No redness or infiltration. SCD's applied/functioning. Bed to lowest position, 3 side rails up, call light within reach, bed alarm activated. Will continue to monitor patient.
[2018-06-16] MEDS: D5NS 1,000 ML IV SCH ×2 (04:17→14:21)
[2018-06-16] MEDS: LORazepam 2 MG/ML VIAL IVP PRN (04:24)
--- NOTE | 2018-06-16 04:24 | NUR ---
ATIVAN Patient is anxious/agitated. Administered Ativan 1mg as ordered by physician for agitation.
--- NOTE | 2018-06-16 06:05 | NUR ---
BLOOD GLUCOSE : 216 (4U regular insulin administered per physician ordered correction sliding scale.)
[2018-06-16] MEDS: INSULIN REGULAR, HUMAN 100 UNITS/ML, 10 ML VIAL (novoLIN R) SUBCUT PRN ×3 (06:06→21:10)
--- NOTE | 2018-06-16 07:23 | NUR ---
CLOSING NOTES Bedside sbar report given to Tammy MONTENEGRO. Patient is awake, eyes open with no apparent distress. All needs/interventions/expectations met by nightshift RN. Transfer of care successful.
--- NOTE | 2018-06-16 08:00 | NUR ---
Opening note Patient is awake, a/o x0, of mandarin decent, nonverbal, confused, agitated. Pt has mittens as form of restraint, is observed trying to take them and appears restless. VSS. Nasal canula noted with O2 at 2 L, no facial grimacing noted or other s/s of distress or pain. Iv to right hand noted, patent, infusing d5ns at ordered rate, scds in place and functioning. Nephrostomy bag to right draining yellow urine, nephrostomy bag to left noted to be draining blood tinged urine, urostomy to mid-line draining blood tinged urine and whelan catheter also draining blood tinged urine; all patent and draining. Safety precautions in place, bed inlow position, side rails up x3, bed alarm, will monitor pt closely
[2018-06-16 08:07] VITALS: BP_SYST 107
--- NOTE | 2018-06-16 10:00 | NUR ---
ROUNDS PT HAD BM, RESTRAINTS REMOVED DURING CLEANING. TOLERATED WELL. AT BEDSIDE AND ASSISTING.
--- NOTE | 2018-06-16 12:00 | NUR ---
ACCUCHECK 132, NO COVERAGE NEEDED PER SLIDING, PT RELEASED FROM MITTENS, AT BEDSIDE, PT IS ABLE TO FOLLOW DIRECTIONS WHILE IS AT BEDSIDE. MITTENS OFF FOR 15 MIN, PT TOLERATED WELL, PT ABSENTMINDEDLY PULLS AT MEDICAL EQUIPMENT, MITTENS PUT BACK ON, WILL FOLLOW UP
--- NOTE | 2018-06-16 14:30 | NUR ---
WOUND CARE RESTRAINTS REMOVED, DURING WOUND CARE SACRAL DRESSING REMOVED, WOUND BED IS BLACK, WITH DENUDED PERIWOUND, CLEANSED WITH NS, PAT DRY, Z GUARD TO PERIWOUND AND COVERED WITH FOAM DRESSING. BILATERAL HIP DRESSING OVER BONY AREAS CHANGED, AND BILATERAL HEEL DRESSING ALSO CHANGED.
[2018-06-16 16:59] VITALS: BP_SYST 95
--- NOTE | 2018-06-16 17:00 | NUR ---
ACCUCHECK 216, COVERED PER SLIDING SCALE RESTRAINTS REMOVED FOR 15 MIN, AND PT CLEANED AND REPOSITIONED IN BED, TOLERATED WELL. SAFETY PRECAUTIONS IN PLACE, AT BEDSIDE, WILL FOLLOW UP
--- NOTE | 2018-06-16 18:40 | NUR ---
CLOSING NOTE PT LAYING IN BED, RESTING, RESTRAINTS IN PLACE, AT BEDSIDE, NASAL CANULA IN PLACE, IVF INFUSING TO RIGHT HAND AT ORDERED RATE, IV SITE INTACT, NO S/S OF INFILTRATION NOTED, BILATERAL NEPHROSTOMIES DRAINING TO GRAVITY, UROSTOMY DRAINING BLOOD COLORED URINE AND WOO CATHETER DRAINING BLOOD COLORED URINE TO GRAVITY, SCDS IN PLACE, ALL NEEDS ATTENDED TO THROUGHOUT SHIFT, SAFETY PRECAUTIONS MAINTAINED, SIDE RAILS UP X4, WILL GIVE REPORT TO FOLLOW SHIFT
--- NOTE | 2018-06-16 19:40 | NUR ---
OPENING NOTE RECEIVED PT ENDORSEMENT REPORT FROM DAY SHIFT NURSE AT BEDSIDE. PT IS RESTING IN BED WITH EYES OPEN, PT'S AT BEDSIDE. PT IS AOX1, MANDARIN SPEAKING. CHEST RISE EVEN AND UNLABORED. NO S/S OF SOB OR DISTRESS. PT IS ON O2 2 L/MIN VIA NC, TOLERATING WELL. PT HAS IV ON RIGHT HAND 22 G, IVF INFUSING WELL. SKIN IS NOT INTACT, DRESSING NOTED TO PT'S SACRUM AND LEFT HIP. DRESSING CHANGED THIS MORNING. DRESSINGS NOTED TO RIGHT HIP AND BILATERAL HEELS PER PRECAUTION. POC DISCUSSED WITH PT'S . SOFT WRIST RESTRAINTS ORDERED BY DR. BENITO. PT INSTRUCTED HOW TO USE CALL LIGHT AND ROOM PHONE, PT UNABLE TO VERBALIZE UNDERSTANDING. SAFETY MEASURES IN PLACE, CALL LIGHT AND PHONE WITHIN REACH, BED IN LOWEST POSITION, BED WHEELS LOCKED, SIDE RAILS UP X2, BED ALARM ON, BEDSIDE TABLE WITHIN REACH. NO FURTHER NEEDS AT THIS TIME. WILL CONTINUE TO MONITOR PT.
--- NOTE | 2018-06-16 19:45 | NUR ---
SOFT WRIST RESTRAINTS PLACED ON PT
[2018-06-16 20:35] VITALS: BP_SYST 105
--- NOTE | 2018-06-16 20:50 | NUR ---
RN ROUNDS PT IS RESTING IN BED WITH EYES OPEN. CHEST RISE EVEN AND UNLABORED. NO S/S OF SOB OR DISTRESS. IVF INFUSING WELL. VITAL SIGNS WNL. O2 ON, PT TOLERATING WELL. SAFETY MEASURES IN PLACE, CALL LIGHT AND PHONE WITHIN REACH, BED IN LOWEST POSITION, BED WHEELS LOCKED, SIDE RAILS UP X2, BED ALARM ON, BEDSIDE TABLE WITHIN REACH. NO FURTHER NEEDS AT THIS TIME. WILL CONTINUE TO MONITOR PT.
--- NOTE | 2018-06-16 21:10 | NUR ---
RN ROUNDS PT IS RESTING IN BED WITH EYES OPEN. CHEST RISE EVEN AND UNLABORED. NO S/S OF SOB OR DISTRESS. IVF INFUSING WELL. NO S/S OF PAIN NOTED. NO FACIAL GRIMACING NOTED, NO MOANING, GROANING NOTED. BS 156, 2 UNITS OF NOVOLIN R ADMINISTERED PER SLIDING SCALE PROTOCOL. PT TOLERATED WELL. NO FURTHER NEEDS AT THIS TIME. SAFETY MEASURES IN PLACE, CALL LIGHT AND PHONE WITHIN REACH, BED IN LOWEST POSITION, BED WHEELS LOCKED, SIDE RAILS UP X2, BED ALARM ON, BEDSIDE TABLE WITHIN REACH. NO FURTHER NEEDS AT THIS TIME. WILL CONTINUE TO MONITOR PT.
--- NOTE | 2018-06-16 23:29 | NUR ---
RN ROUNDS PT IS RESTING IN BED WITH EYES OPEN. CHEST RISE EVEN AND UNLABORED. NO S/S OF SOB OR DISTRESS. IVF INFSUIGN WELL. NO S/S OF PAIN NOTED. SAFETY MEASURES IN PLACE, CALL LIGHT AND PHONE WITHIN REACH, BED IN LOWEST POSITION, BED WHEELS LOCKED, SIDE RAILS UP X2, BED ALARM ON, BEDSIDE TABLE WITHIN REACH. NO FURTHER NEEDS AT THIS TIME. WILL CONTINUE TO MONITOR PT.
[2018-06-17 00:20] VITALS: BP_SYST 93
[2018-06-17] MEDS: D5NS 1,000 ML IV SCH (00:35)
--- NOTE | 2018-06-17 02:05 | NUR ---
NEW IV PLACED TO PT'S RIGHT AC 22 G, IVF INFUSING WELL
[2018-06-17] MEDS: cefTRIAXone 1 GM IVPB PREMIX 50 ML IV SCH (03:33)
--- NOTE | 2018-06-17 03:40 | NUR ---
RN ROUNDS PT RESTING WITH EYES OPEN, CHEST RISE EVEN AND UNLABORED. NO SOB NOTED NO DISTRESS NOTED. NO S/S OF PAIN NOTED. SCHEDULED ROCEPHIN ADMINISTERED ORDERED, IVF INFUSING WELL. NO NEEDS AT THIS TIME. PT'S WOO AND UROSTOMY EMPTYING TO GRAVITY. SAFETY MEASURES IN PLACE. WILL CONTINUE TO MONITOR PT.
--- NOTE | 2018-06-17 04:47 | NUR ---
WOUND CARE PROVIDED, WOUNDS CLEANSED WITH NS, PAT DRY AND OPTIFOAM PLACED TO WOUND
[2018-06-17] MEDS: LORazepam 2 MG/ML VIAL IVP PRN (04:51)
--- NOTE | 2018-06-17 05:28 | NUR ---
RN ROUNDS PT RESTING IN BED WITH EYES OPEN. NO S/S OF SOB NOTED. IVF INFUSING WELL. ATIVAN 1 MG IVP ADMINISTERED FOR RESTLESSNESS. PT TOLERATED WELL. WILL CONTINUE TO MONITOR PT. SAFETY MEASURES IN PLACE, CALL LIGHT AND PHONE WITHIN REACH, BED IN LOWEST POSITION, BED WHEELS LOCKED, SIDE RAILS UP X2, BEDSIDE TABLE WITHIN REACH. NO FURTHER NEEDS AT THIS TIME.
--- NOTE | 2018-06-17 05:30 | NUR ---
R NEPHROSTOMY 75 ML L NEPHROSTOMY 200 ML
[2018-06-17] MEDS ORDERED: EPINEPHrine JECT 1 MG/10 ML SYR IVP ONE (06:59)
[2018-06-17] MEDS ORDERED: SODIUM BICARBONATE 8.4% JECT 50 MEQ/50 ML SYRINGE IVP ONE (06:59)
--- NOTE | 2018-06-17 07:34 | NUR ---
NURSE FOUND PT WITH SHALLOW BREATHING, NURSE ATTEMPTED TO ASSESS PT'S VITAL SIGNS, BP NOT READING, BS 118. BP 37/67, PULSE 67, 97.9 TEMPERATURE, 25 RESPIRATIONS. [facility] RESPONSE CALLED AT 0640, PULSE FAINT, PT NONRESPONSIVE. GÉNESIS CHILEL CALLED [phone]. DR. COBIAN AT BEDSIDE. CPR INITIATED. FAMILY CALLED AND NOTIFIED AT 650. SON ELI [phone], MADE AWARE OF PT'S SHARAN. CPR CONTINUED PER CODE BLUE PROTOCOL,4 EPI AMPULES ADMINISTERED AND 1 BICARB WITH NO SHARAN. NO PULSE, NO HR, NO BP. PT WAS PRONOUNCED AT [address] COBIAN. FAMILY ARRIVED AND ASKED FOR CHEST COMPRESSIONS TO BE STOPPED. PT'S AND SON AT BEDSIDE. DR. WILSON PAGED MULTIPLE TIMES DURING CODE BLUE. DR. WILSON CALLED BACK AT 0740, MADE AWARE OF PT'S .
--- NOTE | 2018-06-17 08:01 | NUR ---
NURSE ASSESSED PT, PT UNRESPONSIVE. PT UNRESPONSIVE TO STERNAL RUB. NO CHEST RISE NOTED. PULSE, HR AND BP ABSENT. EXTREMITIES COOL TO TOUCH. PUPILS DILATED AND FIXED. ALL PULSES ABSENT. PRONOUNCED TIME OF 0700. PT'S AND SON AT BEDSIDE. MD NOTIFIED, [facility] NOTIFIED. NO OTHER NEEDS AT THIS TIME.
--- NOTE | 2018-06-17 08:04 | NUR ---
NURSE ENDORSED PT REPORT TO DAY SHIFT NURSE.
--- NOTE | 2018-06-17 10:09 | NUR ---
Patient picked up at 1006 by Joey Dukes from [facility], and son at bedside, body identified by 2 nurses, bag tagged, toe tagged, wrist tag noted. [facility] aware of slate picker time and destination. Addendum: 06/17/18 at 1017 by Tammy Diehl RN [facility] notified at 07, case number obtained. Mds made aware, Dr Hay and Dr Tian [phone]
== END 2018-06-17 07:00 | disposition expired | DRG 950 ==
LOC: SED 21:54 → SMU 06-14 01:09
PROVIDERS: ADMIT Internal Medicine; ATTEND Internal Medicine
PROC: 0T933ZZ Drainage of Right Kidney Pelvis, Percutaneous Approach (ICD-10-PCS; 2018-06-14)
PROC: 5A02216 Assistance with Cardiac Output using Other Pump, Continuous (ICD-10-PCS; principal; 2018-06-17)
DX: C18.1 Malignant neoplasm of appendix (principal); E43 Unspecified severe protein-calorie malnutrition; G92 Toxic encephalopathy; L89.159 Pressure ulcer of sacral region, unspecified stage; L89.229 Pressure ulcer of left hip, unspecified stage; I10 Essential (primary) hypertension; D63.8 Anemia in other chronic diseases classified elsewhere; N39.0 Urinary tract infection, site not specified; I46.9 Cardiac arrest, cause unspecified; K21.9 Gastro-esophageal reflux disease without esophagitis; Z51.5 Encounter for palliative care; E11.9 Type 2 diabetes mellitus without complications; E78.5 Hyperlipidemia, unspecified; Z66 Do not resuscitate; L89.629 Pressure ulcer of left heel, unspecified stage; L89.619 Pressure ulcer of right heel, unspecified stage; N13.9 Obstructive and reflux uropathy, unspecified; Z74.01 Bed confinement status; Z80.0 Family history of malignant neoplasm of digestive organs; Z78.1 Physical restraint status; Z85.038 Personal history of other malignant neoplasm of large intestine; Z90.49 Acquired absence of other specified parts of digestive tract; Z68.1 Body mass index [BMI] 19.9 or less, adult
CPT/HCPCS: 36415; 70450-TC; 71045; 80053; 80307; 81000-TC; 82150-TC; 82550-TC; 82962; 83605; 83690-TC; 85025; 85610-TC; 85730-TC; 87040-TC; 87081; 87086; 87186-TC; 92610-GN; 93005; 96361; 96365; 96367; 99285; G0482; J0171; J0696; J2060; J3490; J7030; J7042; J7613